=== PATIENT | male | born 1965 | race Caucasian/White ===

== ENCOUNTER 2018-07-04 11:57 | Day surgery (SDC) | payer OTHER ==
[2018-07-04] MEDS ORDERED: PROPOFOL 40 ML (14:23)
[2018-07-04] MEDS ORDERED: LIDOCAINE 2% (SDV) 5 ML INJ (14:23)
[2018-07-04] MEDS ORDERED: ONDANSETRON 4 MG INJ IV (14:30)
[2018-07-04] MEDS ORDERED: EPHEDrine 25 MG/5 ML SYG (15:20)
== END 2018-07-04 16:23 | disposition home or self-care (01) ==
LOC: GIL 11:57
DX: Z12.11 Encounter for screening for malignant neoplasm of colon (principal); K64.8 Other hemorrhoids
CPT/HCPCS: 45378